=== PATIENT | male | born 1960 | race Caucasian/White ===

== ENCOUNTER 2020-11-21 06:55 | Outpatient (REF) | payer BC, SELFPAY ==
--- NOTE | ~2020-11-21 | XR_ITS ---
EXAMINATION: XR SHOULDER, RIGHT XR SHOULDER, LEFT CLINICAL INFORMATION: Pain. COMPARISON: Left shoulder radiographs dated 07/23/2019. TECHNIQUE: AP, Grashey, scapular Y, and axillary views of the right and left shoulders. FINDINGS: RIGHT SHOULDER: No acute fracture or dislocation. Mild glenohumeral joint space narrowing with inferior marginal osteophytes. Moderate acromioclavicular osteoarthritis. No osseous erosion. No abnormal soft tissue calcification. LEFT SHOULDER: Irydrcmz-rr-kjqxdf glenohumeral joint space narrowing with subchondral sclerosis and marginal osteophytes, progressed when compared to the prior examination. Mild acromioclavicular osteoarthritis. No osseous erosion. No fracture or dislocation. No abnormal soft tissue calcification. XR/XR shoulder RT min 2V IMPRESSION: Right Shoulder: Moderate acromioclavicular and mild glenohumeral osteoarthritis. Left Shoulder: Rwjzaxgf-cq-bjnhdy glenohumeral osteoarthritis, progressed when compared to the prior examination. Stable mild acromioclavicular osteoarthritis.
--- NOTE | ~2020-11-21 | XR_ITS ---
EXAMINATION: XR KNEE, RIGHT XR KNEE, LEFT CLINICAL INFORMATION: Pain. COMPARISON: None TECHNIQUE: AP and lateral views of the right and left knees. FINDINGS: RIGHT KNEE: Moderate medial compartment joint space narrowing. Tiny medial and patellofemoral compartment marginal osteophytes. Mild medial and lateral compartment chondrocalcinosis. Small joint effusion. No fracture or dislocation. No osseous erosion. LEFT KNEE: Moderate medial compartment joint space narrowing. Small tricompartmental marginal osteophytes. Medial and lateral compartment chondrocalcinosis. Small joint effusion. No fracture or dislocation. No osseous erosion. XR/XR knee LT 2V IMPRESSION: Right Knee: Moderate medial and mild patellofemoral compartment osteoarthritis. Medial and lateral compartment chondrocalcinosis. Small joint effusion. Left Knee: Moderate medial as well as mild patellofemoral and lateral compartment osteoarthritis. Medial and lateral compartment chondrocalcinosis. Small joint effusion.
--- NOTE | ~2020-11-21 | XR_ITS ---
EXAMINATION: XR KNEE, RIGHT XR KNEE, LEFT CLINICAL INFORMATION: Pain. COMPARISON: None TECHNIQUE: AP and lateral views of the right and left knees. FINDINGS: RIGHT KNEE: Moderate medial compartment joint space narrowing. Tiny medial and patellofemoral compartment marginal osteophytes. Mild medial and lateral compartment chondrocalcinosis. Small joint effusion. No fracture or dislocation. No osseous erosion. LEFT KNEE: Moderate medial compartment joint space narrowing. Small tricompartmental marginal osteophytes. Medial and lateral compartment chondrocalcinosis. Small joint effusion. No fracture or dislocation. No osseous erosion. XR/XR knee RT 2V IMPRESSION: Right Knee: Moderate medial and mild patellofemoral compartment osteoarthritis. Medial and lateral compartment chondrocalcinosis. Small joint effusion. Left Knee: Moderate medial as well as mild patellofemoral and lateral compartment osteoarthritis. Medial and lateral compartment chondrocalcinosis. Small joint effusion.
--- NOTE | ~2020-11-21 | XR_ITS ---
EXAMINATION: XR SHOULDER, RIGHT XR SHOULDER, LEFT CLINICAL INFORMATION: Pain. COMPARISON: Left shoulder radiographs dated 07/23/2019. TECHNIQUE: AP, Grashey, scapular Y, and axillary views of the right and left shoulders. FINDINGS: RIGHT SHOULDER: No acute fracture or dislocation. Mild glenohumeral joint space narrowing with inferior marginal osteophytes. Moderate acromioclavicular osteoarthritis. No osseous erosion. No abnormal soft tissue calcification. LEFT SHOULDER: Dxezctyh-vd-pbjkfl glenohumeral joint space narrowing with subchondral sclerosis and marginal osteophytes, progressed when compared to the prior examination. Mild acromioclavicular osteoarthritis. No osseous erosion. No fracture or dislocation. No abnormal soft tissue calcification. XR/XR shoulder LT min 2V IMPRESSION: Right Shoulder: Moderate acromioclavicular and mild glenohumeral osteoarthritis. Left Shoulder: Iekhzcyf-re-msijfh glenohumeral osteoarthritis, progressed when compared to the prior examination. Stable mild acromioclavicular osteoarthritis.
[2020-11-21 08:05] LABS: MANUAL DIFF FLAG NO
[2020-11-21 08:10] LABS: Basophils Percent Auto 0.4 % (0-2); Eosinophils Absolute Auto 0.2 X10*3/uL (0.0-0.4); Eosinophils Percent Auto 1.8 % (0-4); Hematocrit 44.7 % (42-52); Hemoglobin 14.8 g/dl (14.0-18.0); Imm Gran Abs Auto 0.05 X10*3/uL (0.00-0.03); Imm Gran Pct Auto 0.6 % (0.0-0.4); Lymphocytes Absolute Auto 1.3 X10*3/uL (1.2-4.9); Lymphocytes Percent Auto 14.6 % (20-40); Mean Corpuscular HGB Conc 33.1 g/dl (31.0-36.0); Mean Corpuscular Hemoglobin 30.2 pg (27.0-33.0); Mean Corpuscular Volume 91.2 fL (80-98); Mean Platelet Volume 9.4 fL (9.4-12.4); Monocytes Absolute Auto 0.6 X10*3/uL (0.1-1.2); Neutrophils Absolute Auto 6.8 X10*3/uL (2.0-8.3); Neutrophils Percent Auto 75.6 % (45-73); Platelet Count 307 X10*3/uL (160-400); Red Cell Distribution Width 13.2 % (11.0-16.0)
[2020-11-21 08:20] LABS: Estimated Average Glucose 111 mg/dL; Hemoglobin A1c % 5.5 %
[2020-11-21 08:28] LABS: Cholesterol 176 mg/dL; HDL Cholesterol 51 mg/dL; LDL Cholesterol Calculated 111 mg/dl; Triglycerides 70 mg/dL
[2020-11-21 08:30] LABS: Alanine Aminotransferase 20 U/L (0-40); Albumin Level 4.2 g/dL (3.5-5.0); Alkaline Phosphatase 107 U/L (39-117); Anion Gap 14 (12-20); Aspartate Amino Transferase 18 U/L (5-37); Bilirubin Total 0.9 mg/dL (0.0-1.0); Blood Urea Nitrogen 18 mg/dL (9-16); Calcium 8.9 mg/dL (8.4-10.2); Carbon Dioxide 26 mmol/L (22-29); Chloride 105 mmol/L (96-108); Estimated Glomerular Filt Rate > 60; Glucose Random 108 mg/dL (60-115); Potassium 5.1 mmol/L (3.3-5.1); Sodium 140 mmol/L (135-145); Total Protein 7.2 g/dL (6.5-8.0)
[2020-11-21 08:55] LABS: Free T4 (Free Thyroxine) 1.21 ng/dL (0.71-1.85); Thyroid Stimulating Hormone 0.49 uIU/mL (0.32-4.0)
[2020-11-21 09:20] LABS: Erythrocyte Sedimentation Rate 12 MM/HR (0-15)
[2020-11-21 09:48] LABS: Folate 9.3 ng/mL (> or = 4.0); Vitamin B12 448 pg/mL (200-900)
[2020-11-21 10:49] LABS: Prostate Specific Antigen Scr 2.25 ng/mL (<0.05-4.0)
== END 2020-11-21 06:56 | disposition home or self-care (01) ==
LOC: HO.LAB 06:55
PROVIDERS: PCP Internal Medicine; Visit Provider Internal Medicine
DX: K21.9 Gastro-esophageal reflux disease without esophagitis (principal); E03.9 Hypothyroidism, unspecified; R73.02 Impaired glucose tolerance (oral); E78.00 Pure hypercholesterolemia, unspecified; M25.511 Pain in right shoulder; M25.512 Pain in left shoulder; M25.561 Pain in right knee; M25.562 Pain in left knee; Z12.5 Encounter for screening for malignant neoplasm of prostate
CPT/HCPCS: 36415; 73030; 73560; 80053; 80061; 82607; 82746; 83036; 84153; 84439; 84443; 85025; 85652

== ENCOUNTER 2020-12-13 09:54 | Outpatient (REF) | payer BC, SELFPAY ==
[2020-12-14 17:41] LABS: Lyme Synovial Fluid PCR NOT DETECTED (NOT DETECTED)
== END 2020-12-13 09:55 | disposition home or self-care (01) ==
LOC: HO.LNP 09:54
PROVIDERS: Visit Provider Orthopaedic Surgery
DX: M25.461 Effusion, right knee (principal); M25.561 Pain in right knee; M25.562 Pain in left knee
CPT/HCPCS: 20610; 87071; 87073; 87205; 87476; 89060; J1040

== ENCOUNTER 2021-01-05 09:16 | Outpatient (REF) | payer BC, SELFPAY ==
[2021-01-05 10:53] LABS: C Reactive Protein 5.41 mg/dL (< or = 0.50); Rheumatoid Factor < 15.0 IU/mL (<15.0)
[2021-01-05 11:44] LABS: Erythrocyte Sedimentation Rate 23 MM/HR (0-15)
[2021-01-07 15:27] LABS: Anti Nuclear Antibody Screen NEGATIVE (NEGATIVE)
== END 2021-01-05 09:17 | disposition home or self-care (01) ==
LOC: HO.LAB 09:16
PROVIDERS: PCP Internal Medicine; Visit Provider Internal Medicine
DX: M25.511 Pain in right shoulder (principal); M25.512 Pain in left shoulder
CPT/HCPCS: 36415; 85652; 86038; 86039; 86140; 86431

== ENCOUNTER 2021-01-23 10:11 | Outpatient (REF) | payer BC, SELFPAY ==
--- NOTE | ~2021-01-23 | XR_ITS ---
EXAMINATION: BILATERAL HAND. CLINICAL INFORMATION: Pain COMPARISON: None TECHNIQUE: 3 views each hand. FINDINGS: Right hand: There is a no visible acute fracture, dislocation or subluxation. There is loss of the PIP and DIP joint space suggestive digit. No visible acute fracture, dislocation or lytic process seen. The soft tissues are normal. Left hand: There is no visible acute fracture, dislocation or subluxation seen. There is loss of PIP and DIP joint space second through fifth digits with periarticular spurring PIP joint third digit. XR/XR hand LT min 3V IMPRESSION: Degenerative arthritic changes PIP and DIP joints. No visible acute fracture, dislocation or subluxation seen.
--- NOTE | ~2021-01-23 | XR_ITS ---
EXAMINATION: BILATERAL HAND. CLINICAL INFORMATION: Pain COMPARISON: None TECHNIQUE: 3 views each hand. FINDINGS: Right hand: There is a no visible acute fracture, dislocation or subluxation. There is loss of the PIP and DIP joint space suggestive digit. No visible acute fracture, dislocation or lytic process seen. The soft tissues are normal. Left hand: There is no visible acute fracture, dislocation or subluxation seen. There is loss of PIP and DIP joint space second through fifth digits with periarticular spurring PIP joint third digit. XR/XR hand RT min 3V IMPRESSION: Degenerative arthritic changes PIP and DIP joints. No visible acute fracture, dislocation or subluxation seen.
[2021-01-23 11:24] LABS: MANUAL DIFF FLAG NO
[2021-01-23 11:51] LABS: Basophils Absolute Auto 0.1 X10*3/uL (0.0-0.2); Basophils Percent Auto 0.5 % (0-2); Eosinophils Absolute Auto 0.1 X10*3/uL (0.0-0.4); Eosinophils Percent Auto 1.4 % (0-4); Hematocrit 42.9 % (42-52); Hemoglobin 13.7 g/dl (14.0-18.0); Imm Gran Pct Auto 1.1 % (0.0-0.4); Lymphocytes Absolute Auto 2.1 X10*3/uL (1.2-4.9); Lymphocytes Percent Auto 22.1 % (20-40); Mean Corpuscular HGB Conc 31.9 g/dl (31.0-36.0); Mean Corpuscular Hemoglobin 28.3 pg (27.0-33.0); Mean Corpuscular Volume 88.6 fL (80-98); Monocytes Absolute Auto 0.6 X10*3/uL (0.1-1.2); Monocytes Percent Auto 6.3 % (2-11); Neutrophils Absolute Auto 6.4 X10*3/uL (2.0-8.3); Neutrophils Percent Auto 68.6 % (45-73); Platelet Count 392 X10*3/uL (160-400); Red Blood Count 4.84 X10*6/uL (4.60-5.80); Red Cell Distribution Width 13.1 % (11.0-16.0); White Blood Count 9.4 X10*3/uL (4.8-10.8)
[2021-01-23 12:23] LABS: Alanine Aminotransferase 20 U/L (0-40); Albumin Level 4.1 g/dL (3.5-5.0); Alkaline Phosphatase 98 U/L (39-117); Anion Gap 15 (12-20); Aspartate Amino Transferase 17 U/L (5-37); Bilirubin Total 0.6 mg/dL (0.0-1.0); Blood Urea Nitrogen 18 mg/dL (9-16); C Reactive Protein 8.04 mg/dL (< or = 0.50); Calcium 9.6 mg/dL (8.4-10.2); Carbon Dioxide 26 mmol/L (22-29); Chloride 104 mmol/L (96-108); Estimated Glomerular Filt Rate > 60; Glucose Random 96 mg/dL (60-115); Potassium 4.9 mmol/L (3.3-5.1); Sodium 140 mmol/L (135-145); Total Protein 7.4 g/dL (6.5-8.0)
[2021-01-23 12:29] LABS: Erythrocyte Sedimentation Rate 40 MM/HR (0-15)
[2021-01-24 21:36] LABS: Lyme Abs Screen <0.90 index
[2021-01-26 14:36] LABS: Cyclic Citrullinated Peptide <16 UNITS
== END 2021-01-23 10:12 | disposition home or self-care (01) ==
LOC: HO.LAB 10:11
PROVIDERS: PCP Internal Medicine; Visit Provider Student in an Organized Health Care Education/Training Program
DX: M25.511 Pain in right shoulder (principal); M25.512 Pain in left shoulder; M79.642 Pain in left hand; M79.641 Pain in right hand
CPT/HCPCS: 36415; 73130; 80053; 85025; 85652; 86140; 86200; 86617; 86618

== ENCOUNTER 2021-02-07 14:04 | Outpatient (REF) | payer BC, SELFPAY ==
[2021-02-07 15:00] LABS: MANUAL DIFF FLAG NO
[2021-02-07 15:08] LABS: Basophils Percent Auto 0.3 % (0-2); Eosinophils Percent Auto 0.4 % (0-4); Hematocrit 43.6 % (42-52); Hemoglobin 14.2 g/dl (14.0-18.0); Imm Gran Abs Auto 0.07 X10*3/uL (0.00-0.03); Imm Gran Pct Auto 0.6 % (0.0-0.4); Immature Retic Fraction 8.2 % (2.3-13.4); Lymphocytes Absolute Auto 2.4 X10*3/uL (1.2-4.9); Lymphocytes Percent Auto 21.4 % (20-40); Mean Corpuscular HGB Conc 32.6 g/dl (31.0-36.0); Mean Corpuscular Hemoglobin 28.9 pg (27.0-33.0); Mean Corpuscular Volume 88.6 fL (80-98); Mean Platelet Volume 9.1 fL (9.4-12.4); Monocytes Absolute Auto 0.5 X10*3/uL (0.1-1.2); Monocytes Percent Auto 4.3 % (2-11); Neutrophils Absolute Auto 8.1 X10*3/uL (2.0-8.3); Platelet Count 362 X10*3/uL (160-400); Red Blood Count 4.92 X10*6/uL (4.60-5.80); Red Cell Distribution Width 14.4 % (11.0-16.0); Retic HGB Equivalent 33.5 pg (30.0-35.0); Reticulocyte Percent 1.8 % (0.5-1.8); Reticulocytes Absolute 0.089 X10*6/uL (0.026-0.095); White Blood Count 11.1 X10*3/uL (4.8-10.8)
[2021-02-07 15:42] LABS: C Reactive Protein 2.64 mg/dL (< or = 0.50); Iron 36 mcg/dL (45-160); Percent Iron Saturation 11 % (15-50); Total Iron Binding Capacity 317 mcg/dL (228-428); Unsaturated Iron Binding 281 ug/dL
[2021-02-07 15:51] LABS: Ferritin 285 ng/mL (20-250)
[2021-02-07 16:04] LABS: Erythrocyte Sedimentation Rate 7 MM/HR (0-15)
[2021-02-07 16:06] LABS: Folate 14.6 ng/mL (> or = 4.0); Vitamin B12 502 pg/mL (200-900)
== END 2021-02-07 14:05 | disposition home or self-care (01) ==
LOC: HO.LAB 14:04
PROVIDERS: Absent Provider Internal Medicine; PCP Internal Medicine; Visit Provider Student in an Organized Health Care Education/Training Program
DX: M35.3 Polymyalgia rheumatica (principal); D64.9 Anemia, unspecified
CPT/HCPCS: 36415; 82607; 82728; 82746; 83540; 85025; 85045; 85652; 86140

== ENCOUNTER → 2021-02-15 14:56 | Outpatient (BNVA) | payer BC, SELFPAY | PROVIDERS: PCP Internal Medicine; Visit Provider Student in an Organized Health Care Education/Training Program ==

== ENCOUNTER 2021-03-05 05:57 | Outpatient (REF) | payer BC, SELFPAY ==
[2021-03-05 07:53] LABS: C Reactive Protein 0.77 mg/dL (< or = 0.50)
[2021-03-05 08:33] LABS: Erythrocyte Sedimentation Rate 4 MM/HR (0-15)
== END 2021-03-05 05:58 | disposition home or self-care (01) ==
LOC: HO.LAB 05:57
PROVIDERS: PCP Internal Medicine; Visit Provider Student in an Organized Health Care Education/Training Program
DX: M35.3 Polymyalgia rheumatica (principal)
CPT/HCPCS: 36415; 85652; 86140

== ENCOUNTER → 2021-03-09 12:32 | Outpatient (BNVA) | payer BC, SELFPAY | PROVIDERS: PCP Internal Medicine; Visit Provider Student in an Organized Health Care Education/Training Program ==

== ENCOUNTER 2021-04-02 06:01 | Outpatient (REF) | payer BC, SELFPAY ==
[2021-04-02 07:34] LABS: C Reactive Protein 0.31 mg/dL (< or = 0.50)
[2021-04-02 09:12] LABS: Erythrocyte Sedimentation Rate 5 MM/HR (0-15)
== END 2021-04-02 06:02 | disposition home or self-care (01) ==
LOC: HO.LAB 06:01
PROVIDERS: PCP Internal Medicine; Visit Provider Student in an Organized Health Care Education/Training Program
DX: M35.3 Polymyalgia rheumatica (principal)
CPT/HCPCS: 36415; 85652; 86140

== ENCOUNTER → 2021-04-04 12:20 | Outpatient (BNVA) | payer BC, SELFPAY | PROVIDERS: PCP Internal Medicine; Visit Provider Nurse Practitioner Family ==

== ENCOUNTER 2021-06-18 06:00 | Outpatient (REF) | payer BC, SELFPAY ==
[2021-06-18 07:38] LABS: C Reactive Protein 0.24 mg/dL (< or = 0.50)
[2021-06-18 08:41] LABS: Erythrocyte Sedimentation Rate 5 MM/HR (0-15)
== END 2021-06-18 06:01 | disposition home or self-care (01) ==
LOC: HO.LAB 06:00
PROVIDERS: PCP Internal Medicine; Visit Provider Nurse Practitioner Family
DX: M35.3 Polymyalgia rheumatica (principal)
CPT/HCPCS: 36415; 85652; 86140

== ENCOUNTER → 2021-06-21 08:39 | Outpatient (BNVA) | payer BC, SELFPAY | PROVIDERS: PCP Internal Medicine; Visit Provider Nurse Practitioner Family ==

== ENCOUNTER 2021-09-03 05:59 | Outpatient (REF) | payer BC, SELFPAY ==
[2021-09-03 07:31] LABS: C Reactive Protein 0.56 mg/dL (< or = 0.50)
[2021-09-03 07:53] LABS: Erythrocyte Sedimentation Rate 5 MM/HR (0-15)
== END 2021-09-03 06:00 | disposition home or self-care (01) ==
LOC: HO.LAB 05:59
PROVIDERS: PCP Internal Medicine; Visit Provider Nurse Practitioner Family
DX: M35.3 Polymyalgia rheumatica (principal)
CPT/HCPCS: 36415; 85652; 86140

== ENCOUNTER → 2021-09-06 09:48 | Outpatient (BNVA) | payer BC, SELFPAY | PROVIDERS: PCP Internal Medicine; Visit Provider Nurse Practitioner Family ==

== ENCOUNTER 2021-10-29 15:31 | Outpatient (REF) | payer BC, SELFPAY ==
[2021-10-29 17:06] LABS: C Reactive Protein 0.54 mg/dL (< or = 0.50)
[2021-10-29 17:22] LABS: Erythrocyte Sedimentation Rate 4 MM/HR (0-15)
== END 2021-10-29 15:32 | disposition home or self-care (01) ==
LOC: HO.LAB 15:31
PROVIDERS: PCP Internal Medicine; Visit Provider Nurse Practitioner Family
DX: M35.3 Polymyalgia rheumatica (principal)
CPT/HCPCS: 36415; 85652; 86140

== ENCOUNTER 2021-12-03 05:59 | Outpatient (REF) | payer BC, SELFPAY ==
[2021-12-03 08:07] LABS: C Reactive Protein 0.48 mg/dL (< or = 0.50)
[2021-12-03 08:26] LABS: Erythrocyte Sedimentation Rate 5 MM/HR (0-15)
== END 2021-12-03 06:00 | disposition home or self-care (01) ==
LOC: HO.LAB 05:59
PROVIDERS: PCP Internal Medicine; Visit Provider Nurse Practitioner Family
DX: M35.3 Polymyalgia rheumatica (principal)
CPT/HCPCS: 36415; 85652; 86140

== ENCOUNTER → 2021-12-05 07:54 | Outpatient (BNVA) | payer BC, SELFPAY | PROVIDERS: PCP Internal Medicine; Visit Provider Nurse Practitioner Family | DX: Z13.89 Encounter for screening for other disorder (principal) ==

== ENCOUNTER 2022-02-12 12:50 | Outpatient (REF) | payer BC, SELFPAY ==
--- NOTE | ~2022-02-12 | XR_ITS ---
EXAMINATION: XR ABDOMEN KUB CLINICAL INDICATION: Screening for malignant neoplasm of colon. COMPARISON: None TECHNIQUE: AP view of the abdomen. FINDINGS: There is scattered stool in colon without any distention. No organomegaly. The small bowel loops are normal caliber. Mild degenerative disc changes L3-L4 disc level are noted. There is evidence of previous bilateral vasectomy. XR/XR KUB IMPRESSION: Nonspecific bowel gas pattern with mild constipation. Mild degenerative disc changes L3-L4 disc level.
== END 2022-02-12 12:51 | disposition home or self-care (01) ==
LOC: HO.XRAY 12:50
PROVIDERS: PCP Internal Medicine; Visit Provider Internal Medicine
DX: Z12.11 Encounter for screening for malignant neoplasm of colon (principal); K59.00 Constipation, unspecified; M51.36 Other intervertebral disc degeneration, lumbar region
CPT/HCPCS: 74018

== ENCOUNTER 2022-02-13 05:52 | Outpatient (REF) | payer BC, SELFPAY ==
[2022-02-13 06:03] LABS: MANUAL DIFF FLAG NO
[2022-02-13 06:59] LABS: Appearance Urine CLEAR; Color Urine YELLOW; Glucose Urine UA NEG (NEG); Leukocyte Esterase Urine NEG (NEG); Nitrite Urine NEG (NEG); PH 5.5 (5.0-8.0); Specific Gravity - Urine 1.025 (1.005-1.025); Urine Blood NEG (NEG); Urine Ketones NEG (NEG); Urine Protein NEG (NEG-TRACE)
[2022-02-13 07:25] LABS: Basophils Percent Auto 0.8 % (0-2); Eosinophils Absolute Auto 0.2 X10*3/uL (0.0-0.4); Hematocrit 43.8 % (42.0-52.0); Hemoglobin 14.5 g/dl (14.0-18.0); Imm Gran Abs Auto 0.02 X10*3/uL (0.00-0.03); Imm Gran Pct Auto 0.4 % (0.0-0.4); Lymphocytes Absolute Auto 1.6 X10*3/uL (1.2-4.9); Lymphocytes Percent Auto 33.3 % (20-40); Mean Corpuscular HGB Conc 33.1 g/dl (31.0-36.0); Mean Corpuscular Hemoglobin 30.2 pg (27.0-33.0); Mean Corpuscular Volume 91.3 fL (80.0-98.0); Mean Platelet Volume 9.6 fL (9.4-12.4); Monocytes Absolute Auto 0.4 X10*3/uL (0.1-1.2); Neutrophils Absolute Auto 2.5 x10*3/uL (2.0-8.3); Neutrophils Percent Auto 52.5 % (45-73); Platelet Count 240 X10*3/uL (160-400); Red Cell Distribution Width 13.4 % (11.0-16.0); White Blood Count 4.8 X10*3/uL (4.8-10.8)
[2022-02-13 07:30] LABS: RBC Urine 0-2 /HPF (0); WBC Urine 0 /HPF (0-4)
[2022-02-13 07:41] LABS: Estimated Average Glucose 108 mg/dL; Hemoglobin A1c % 5.4 %
[2022-02-13 07:42] LABS: Alanine Aminotransferase 21 U/L (0-40); Albumin Level 4.2 g/dL (3.5-5.0); Alkaline Phosphatase 90 U/L (39-117); Anion Gap 11 (12-20); Aspartate Amino Transferase 21 U/L (5-37); Bilirubin Total 0.7 mg/dL (0.0-1.0); Blood Urea Nitrogen 19 mg/dL (9-16); C Reactive Protein 0.47 mg/dL (< or = 0.50); Carbon Dioxide 26 mmol/L (22-29); Chloride 110 mmol/L (96-108); Cholesterol 145 mg/dL; Estimated Glomerular Filt Rate > 60; Glucose Random 99 mg/dL (60-115); HDL Cholesterol 44 mg/dL; LDL Cholesterol Calculated 89 mg/dl; Sodium 142 mmol/L (135-145); Triglycerides 63 mg/dL
[2022-02-13 08:12] LABS: Free T4 (Free Thyroxine) 1.42 ng/dL (0.71-1.85); Prostate Specific Antigen Scr 1.94 ng/mL (<0.05-4.0); Thyroid Stimulating Hormone 0.24 uIU/mL (0.32-4.0)
[2022-02-13 08:17] LABS: Erythrocyte Sedimentation Rate 5 MM/HR (0-15)
[2022-02-13 08:28] LABS: Folate 14.6 ng/mL (> or = 4.0); Vitamin B12 406 pg/mL (200-900)
== END 2022-02-13 05:53 | disposition home or self-care (01) ==
LOC: HO.LAB 05:52
PROVIDERS: Nurse Practitioner Family; PCP Internal Medicine; Visit Provider Internal Medicine
DX: Z12.5 Encounter for screening for malignant neoplasm of prostate (principal); E03.9 Hypothyroidism, unspecified; E78.00 Pure hypercholesterolemia, unspecified; M35.3 Polymyalgia rheumatica
CPT/HCPCS: 36415; 80053; 80061; 81001; 82607; 82746; 83036; 84153; 84439; 84443; 85025; 85652; 86140

== ENCOUNTER 2022-03-28 16:08 | Outpatient (REF) | payer BC, SELFPAY ==
[2022-03-28 17:28] LABS: Free T4 (Free Thyroxine) 1.39 ng/dL (0.71-1.85); Thyroid Stimulating Hormone 0.12 uIU/mL (0.32-4.0)
== END 2022-03-28 16:09 | disposition home or self-care (01) ==
LOC: HO.LAB 16:08
PROVIDERS: PCP Internal Medicine; Visit Provider Internal Medicine
DX: E03.9 Hypothyroidism, unspecified (principal)
CPT/HCPCS: 36415; 84439; 84443

== ENCOUNTER 2022-05-13 16:15 | Outpatient (REF) | payer BC, SELFPAY ==
[2022-05-13 17:45] LABS: Free T4 (Free Thyroxine) 1.23 ng/dL (0.71-1.85)
== END 2022-05-13 16:16 | disposition home or self-care (01) ==
LOC: HO.LAB 16:15
PROVIDERS: PCP Internal Medicine; Visit Provider Internal Medicine
DX: E03.9 Hypothyroidism, unspecified (principal)
CPT/HCPCS: 36415; 84439; 84443

== ENCOUNTER 2022-08-15 07:37 | Day surgery (SDC) | payer BC, SELFPAY ==
[2022-08-13 10:24] VITALS: BMI 29.5
--- NOTE | 2022-08-14 13:44 | P.CONAN_ITS ---
Documented by User: Sherley Angela NP 08/14/22 13:47 HPI - Anesthesia Eval Consult details Narrative: 62yo M for Upper Endoscopy and Colonoscopy [facility] Active Problems Active Problems: All Active Problems (Updated 04/11/22 @ 10:34 by Mallory Lang PA-C) Left flank discomfort (Acute) Colon cancer screening (Acute) Anemia (Acute) Polymyalgia rheumatica (Acute) Osteoarthritis (Acute) Annual physical exam (Acute) Bilateral hand pain (Acute) Knee effusion, right (Acute) Shoulder pain, bilateral (Acute) Knee pain, bilateral (Acute) Impaired glucose tolerance (Acute) Hypercholesterolemia (Acute) GERD (gastroesophageal reflux disease) (Acute) Hypothyroid (Acute) Past Medical History Medical History Azygos lobe of lung Carpal tunnel syndrome, right Degenerative disc disease, cervical Finger fracture, right GERD (gastroesophageal reflux disease) Hypercholesterolemia Polymyalgia rheumatica Vitamin D deficiency Family History Family History Father Alcohol abuse Brother Alcohol abuse Sister Thyroid cancer History of Avila's esophagus Surgical History Surgical History H/O colonoscopy H/O endoscopy History of vasectomy Social History Social History Housing: House Alcohol intake: former Patient Tobacco Use Status: Former Tobacco user Quit Date: 1996 Tobacco use type: Cigarette Cigarette Packs Per Day: 1.5 Cigarettes Per Day: 30.0 Years Smoked: 15 Smoked in Last 30 Days: No e-Cigarette/Vaping Use: Never Used Use of substances other than those prescribed or required for medical reasons: No Are you DNR?: No Advance Directives: No Advance Directives Information Provided: Yes service: No Current occupational status: employed Cognitive needs: No Hearing needs: No Vision needs: Yes Meds Allergies Allergy/AdvReac Type Severity Reaction Status Date / Time simvastatin Allergy Intermediate Drowsy Verified 08/15/22 08:04 atorvastatin calcium Allergy Intermediate Drowsy Uncoded 08/15/22 08:04 pravastatin sodium Allergy Intermediate Drowsy Uncoded 08/15/22 08:04 Home Medications Medication Instructions Recorded Confirmed Last Taken Type ibuprofen 600 mg tablet 600 mg PO Q8H PRN Pain 02/05/22 08/15/22 08/14/22 History 200 mg Exam Exam Date and Time: August 14, 2022 1344 Height,Weight and Vital Signs: Height 5 ft 9 in Weight 90.718 kg Pertinent Lab Results Pertinent Lab Results: Laboratory Tests 02/13/22 02/13/22 06:02 06:02 WBC 4.8 Hgb 14.5 Hct 43.8 Plt Count 240 Sodium 142 Potassium 5.0 Chloride 110 H Carbon Dioxide 26 BUN 19 H Creatinine 1.10 Assessment and Plan Assessment Anesthesia Assessment: Chart Reviewed Documented by User: dAe Kim MD 08/15/22 10:04 [facility] Past Medical History Medical History Azygos lobe of lung Carpal tunnel syndrome, right Degenerative disc disease, cervical Finger fracture, right GERD (gastroesophageal reflux disease) Hypercholesterolemia Polymyalgia rheumatica Vitamin D deficiency Family History Family History Father Alcohol abuse Brother Alcohol abuse Sister Thyroid cancer History of Avila's esophagus Family history of problems with anesthesia: No Surgical History Surgical History H/O colonoscopy H/O endoscopy History of vasectomy History of Problems with Anesthesia: No Social History Social History Housing: House Alcohol intake: former Patient Tobacco Use Status: Former Tobacco user Quit Date: 1996 Tobacco use type: Cigarette Cigarette Packs Per Day: 1.5 Cigarettes Per Day: 30.0 Years Smoked: 15 Smoked in Last 30 Days: No e-Cigarette/Vaping Use: Never Used Use of substances other than those prescribed or required for medical reasons: No Are you DNR?: No Advance Directives: No Advance Directives Information Provided: Yes service: No Current occupational status: employed Cognitive needs: No Hearing needs: No Vision needs: Yes Meds Allergies Allergy/AdvReac Type Severity Reaction Status Date / Time simvastatin Allergy Intermediate Drowsy Verified 08/15/22 08:04 atorvastatin calcium Allergy Intermediate Drowsy Uncoded 08/15/22 08:04 pravastatin sodium Allergy Intermediate Drowsy Uncoded 08/15/22 08:04 Home Medications Medication Instructions Recorded Confirmed Last Taken Type ibuprofen 600 mg tablet 600 mg PO Q8H PRN Pain 02/05/22 08/15/22 08/14/22 History 200 mg Exam Height,Weight and Vital Signs: Height 5 ft 9 in Weight 90.718 kg Vital Signs Temp Pulse Resp BP Pulse Ox O2 Del Method 08/15/22 08:05 97.6 F 65 16 139/78 97 Room Air Airway Mallampati Class: I TM Dist: >3cm Neck ROM: Full Loose/Missing/Broken Teeth: Yes Heart: RRR Lungs: CTAB Assessment and Plan Assessment Anesthesia Assessment: Anesthesia Plan Discussed Final Anesthetic Review Family History of Problems with Anesthesia: No History of Problems with Anesthesia: No NPO: Yes ASA Class: II Final Preanesthetic Review: No Changes in Pt Med Stat, Meds/Allgs Chart Reviewed, Consent Obtained/Reviewed and Anes Risks/Benef Reviewed Patient Risk: Low Procedure Risk: Low Assessment/Block/Sedation in SS: Assess/Block/Sedation-SS Anesthetic Plan Anesthetic Plan: MAC: Disposition: Standard PACU
[2022-08-15 08:05] VITALS: BP 139/78; PULSE 65; RESP 16; TEMP 36.4; O2SAT 97; BMI 29.5
[2022-08-15] MEDS: Lactated Ringers 1,000 ML 100 ML IVCONT (08:19)
--- NOTE | 2022-08-15 08:34 | MHC.SHP ---
Pre-Procedural Eval Section A Date of Service: 08/15/22 Section B Chief Complaint: reflux disease,screening Relevant Family History (Specify if Yes): No Relevant Social History: None Present Medications: see Short Stay Collaborative assessment Medical History: Significant History (Azygos lobe of lung Carpal tunnel syndrome, right Degenerative disc disease, cervical Finger fracture, right GERD (gastroesophageal reflux disease) Hypercholesterolemia Polymyalgia rheumatica Vitamin D deficiency) History of Previous Operations: Relevant previous surgery/procedure and date(s) (vasectomy) Allergies: Allergies Allergy/AdvReac Type Severity Reaction Status Date / Time simvastatin Allergy Intermediate Drowsy Verified 08/15/22 08:04 atorvastatin calcium Allergy Intermediate Drowsy Uncoded 08/15/22 08:04 pravastatin sodium Allergy Intermediate Drowsy Uncoded 08/15/22 08:04 Review of Systems Sugical H&P ROS: Negative: Constitution, Cardiovascular, Respiratory, Neurological, Psychiatric, Hem-Onc, Allergic/Immunologic, Gastrointestinal, Genitourinary, Musculoskeletal, Integumentary, Endocrine and Eyes/Ears/Nose/Throat Exam Surgical H&P Exam: Normal: HEENT, Normal: Heart, Normal: Lungs, Normal: Extremities, Normal: Abdomen, Normal: Skin and Normal: Neurological Plan Diagnosis/Plan: Unchanged I have reviewed the history and physical and performed a pertinent physical examination on my patient. No changes have occurred unless specified. Time Spent With Patient Time: Total time managing care of this patient today ____ minutes.
--- NOTE | 2022-08-15 09:17 | W.PM.OPN ---
Operative Note Operative Note Date of Service: 08/15/22 Narrative: Operative Information Procedure Description: EGD, Colonoscopy Indication: reflux, screening Anesthesia: MAC FLEXIBLE TRANSORAL UPPER GASTROINTESTINAL ENDOSCOPY AND COLONOSCOPY PROCEDURE NOTE UPPER ENDOSCOPY Consent: Indications for the procedure and potential complications of bleeding, perforation, reaction to medications and missed diagnosis were discussed with the patient and informed consent was obtained. Instrument: Olympus GIF H 190 J mid size upper endoscope Monitoring: Vital signs and clinical assessment, continuous EKG monitoring, Pulse oximetry, Carbon Dioxide monitoring and blood pressure monitoring were done throughout the procedure. Procedure: The patient was placed in the left lateral decubitis position and pre-procedure medications were administered and a bite block was placed. The endoscope was inserted into the mouth and advanced under direct vision to the third part of duodenum. A careful inspection was made as the upper endoscope was withdrawn including a retroflexed examination of the proximal stomach; Findings and interventions are described below. Findings: Larynx:normal Esophagus: GE junction at 36 cm, diaphragm hiatus at 39 cm, 3 cm sliding hiatal hernia noted. Erythema around GEJ bx taken from here and distal esophagus Stomach: Patchy erythema and few erosions antrum. Biopsies were obtained. Grade 2 flap valve on retroflexed examination of the cardia. Duodenum: Bulbar duodenitis, polypoid leison/nodule removed with cold snare in bulb measured about 10 mm, possible prominent raf gland due to duodenitis, x 3 clips applied for hemostasis Intervention: Biopsies as noted above, polypectomy COLONOSCOPY Instrument: Olympus variable stiffness pediatric scope 190L Colonoscopy Monitoring: Vital signs and clinical assessment, continuous EKG monitoring, Pulse oximetry, Carbon Dioxide monitoring and blood pressure monitoring were done throughout the procedure. Colon withdrawal time was 10 minutes. Procedure: The patient was placed in the left lateral decubitis position and pre-procedure medications were administered. After a digital rectal examination of the ano-rectum, the video colonoscope was inserted into the rectum and advanced through the colon to the cecum/TI. The colonoscope was slowly withdrawn in a retrograde panoramic fashion and the colon mucosa was carefully examined including a retroflexed view of the rectum. Findings and interventions are described below. Procedure Difficulty: easy Findings: Terminal Ileum-normal Cecum:normal Ascending Colon: normal Transverse Colon - 6-8 mm sessile polyp removed with cold snare Descending Colon:normal Sigmoid Colon: moderate severe diverticulosis Rectum: Retroflexion with moderate internal hemorrhoids, grade I, 7-8 mm sessile polyp removed with cold forceps Anorectum - normal Colon preparation: [place] Bowel Preparation Scale Right colon; 3 Transverse colon: 2 Left colon; 3 (0 = Unprepared colon segment with mucosa not seen due to solid stool that cannot be cleared. 1 = Portion of mucosa of the colon segment seen, but other areas of the colon segment not well seen due to staining, residual stool and/or opaque liquid. 2 = Minor amount of residual staining, small fragments of stool and/or opaque liquid, but mucosa of colon segment seen well. 3 = Entire mucosa of colon segment seen well with no residual staining, small fragments of stool or opaque liquid) Impression and Post Procedure Diagnosis: Endoscopy Findings: duodenitis duodenal polyp gastritis esophagitis hiatal hernia Colonoscopy Findings: polyps internal hemorrhoids diverticular disease Plan: Await Pathology results Repeat Colonoscopy in 5 years due to polyps or earlier if clinically indicated High fiber diet leaflet avoid straining at stool, epsom salts and sitz bath, anusol supps or cream check compliance with PPI Above findings were reviewed with the patient and relevant handouts were provided if indicated.
[2022-08-15 10:13] VITALS: BP 98/63; PULSE 63; RESP 16; TEMP 36.4; O2SAT 98
[2022-08-15 10:27] VITALS: BP 103/76; PULSE 65; RESP 16; O2SAT 95
[2022-08-15 10:40] VITALS: BP 103/76; PULSE 62; RESP 18; TEMP 36.4; O2SAT 95
== END 2022-08-15 10:56 ==
LOC: HO.SSS 07:37
PROVIDERS: PCP Internal Medicine; Visit Provider Internal Medicine Gastroenterology
PROC: (CPT 45385; principal; 2022-08-15 09:20)
DX: Z12.11 Encounter for screening for malignant neoplasm of colon (principal); D12.3 Benign neoplasm of transverse colon; K62.1 Rectal polyp; K57.30 Diverticulosis of large intestine without perforation or abscess without bleeding; K64.0 First degree hemorrhoids; R13.10 Dysphagia, unspecified; K21.9 Gastro-esophageal reflux disease without esophagitis; K29.80 Duodenitis without bleeding; K29.50 Unspecified chronic gastritis without bleeding; K20.80 Other esophagitis without bleeding; K31.7 Polyp of stomach and duodenum; K44.9 Diaphragmatic hernia without obstruction or gangrene; E78.00 Pure hypercholesterolemia, unspecified; E55.9 Vitamin D deficiency, unspecified; M35.3 Polymyalgia rheumatica; Q33.1 Accessory lobe of lung; Z79.1 Long term (current) use of non-steroidal anti-inflammatories (NSAID); Z79.899 Other long term (current) drug therapy; Z88.8 Allergy status to other drugs, medicaments and biological substances; Z87.891 Personal history of nicotine dependence
CPT/HCPCS: 45385; 45380; 43251; 43239; 88305; 88342

== ENCOUNTER → 2022-09-11 07:53 | Outpatient (BNVA) | payer BC, SELFPAY | PROVIDERS: PCP Internal Medicine; Referring Provider Internal Medicine; Visit Provider Internal Medicine Gastroenterology | DX: Z13.89 Encounter for screening for other disorder (principal) ==

== ENCOUNTER 2022-09-11 16:06 | Outpatient (REF) | payer BC, SELFPAY ==
[2022-09-13 14:30] LABS: H Pylori Breath Test Negative (Negative)
== END 2022-09-11 16:07 | disposition home or self-care (01) ==
LOC: HO.LNP 16:06
PROVIDERS: Visit Provider Internal Medicine Gastroenterology
DX: Z11.0 Encounter for screening for intestinal infectious diseases (principal)
CPT/HCPCS: 83013

== ENCOUNTER 2023-02-17 05:57 | Outpatient (REF) | payer BC, SELFPAY | END 2023-02-17 05:58 | disposition home or self-care (01) | LOC: HO.LAB 05:57 | PROVIDERS: PCP Internal Medicine; Visit Provider Internal Medicine | DX: Z12.5 Encounter for screening for malignant neoplasm of prostate (principal); E03.9 Hypothyroidism, unspecified; K21.9 Gastro-esophageal reflux disease without esophagitis; R73.02 Impaired glucose tolerance (oral); E78.00 Pure hypercholesterolemia, unspecified | CPT/HCPCS: 36415; 80053; 80061; 82607; 82746; 83036; 84153; 84439; 84443; 85025 ==

== ENCOUNTER 2023-11-19 14:09 | Outpatient (AMB) | payer OTHER, SELFPAY ==
[2023-11-19 14:17] VITALS: BP 124/78; PULSE 54; O2SAT 95; BMI 28.8
--- NOTE | 2023-11-19 14:17 | A.OFFPC_ITS ---
Vital Signs 11/19/23 14:17 Height 5 ft 9 in Weight 195 lb BMI 28.8 BP 124/78 Blood Pressure Location Lt brachial Position Sitting Pulse 54 Pulse Source Pulse Oximeter Pulse Oximetry (%) 95 Oxygen Delivery Method Room Air Intake Visit Reasons: Pre-Op, cataract left eye, Madison Stephens Allergies simvastatin Allergy (Intermediate, Verified 11/19/23 14:17) Drowsy atorvastatin calcium Allergy (Intermediate, Uncoded 11/19/23 14:17) Drowsy pravastatin sodium Allergy (Intermediate, Uncoded 11/19/23 14:17) Drowsy Medication List - Last Reconciled 11/19/23 by Charlotte Mayes MD apple cider vinegar 600 mg PO .QD ibuprofen 600 mg PO Q8H PRN levothyroxine (Synthroid) 150 mcg orally take once a day except for friday; 90 days pantoprazole 20 mg PO QAM rosuvastatin 5 mg PO DAILY Tobacco use date assessed: 11/19/23 Dental Screening Dental Screen Date: 11/19/23 Did you have a dental visit in the last 12 months?: Yes Did you have a dental problem in the last 6 months where you did not have access to dental care?: No Was dental information given to patient?: Patient has dentist HPI Pre-Op, cataract left eye, Madison Stephens HPI Details 63-year-old overweight male with a histo ry of hypercholesterolemia impaired glucose tolerance hypothyroidism and GERD last seen for physical in February 2023. Patient is here for preoperative evaluation for cataract surgery scheduled for 11/25/2023 Left eye [facility] Medical History (Updated 11/19/23 @ 14:31 by Charlotte Mayes MD) Left flank discomfort Colon cancer screening Anemia Finger fracture, right Polymyalgia rheumatica Bilateral hand pain Knee effusion, right Shoulder pain, bilateral Knee pain, bilateral Azygos lobe of lung Degenerative disc disease, cervical Carpal tunnel syndrome, right Hypercholesterolemia Vitamin D deficiency GERD (gastroesophageal reflux disease) Surgical History History of esophagogastroduodenoscopy (EGD) H/O endoscopy H/O colonoscopy History of vasectomy Family History (Updated 11/19/23 @ 14:19 by Ana Rosa Bautista CMA) Father Alcohol abuse Brother Alcohol abuse Sister Thyroid cancer History of Avila's esophagus Social History (Updated 02/12/23 @ 16:01 by Charlotte Mayes MD) Housing: House Alcohol intake: former Patient Tobacco Use Status: Former Tobacco user Quit Date: 1996 Tobacco use type: Cigarette Cigarette Packs Per Day: 1.5 Cigarettes Per Day: 30.0 Years Smoked: 15 QUIT 1996 e-Cigarette/Vaping Use: Never Used service: No Current occupational status: employed Cognitive needs: No Hearing needs: No Vision needs: Yes Questionnaire PHQ-9 Over the last 2 weeks, how often have you been bothered by any of the following problems? 1. Little interest or pleasure in doing things: not at all 2. Feeling down, depressed, or hopeless: not at all 3. Trouble falling or staying asleep, or sleeping too much: not at all 4. Feeling tired or having little energy: not at all 5. Poor appetite or overeating: not at all 6. Feeling bad about yourself - or that you are a failure or have let yourself or your family down: not at all 7. Trouble concentrating on things, such as reading the newspaper or watching television: not at all 8. Moving or speaking so slowly that other people could have noticed. Or the opposite - being so fidgety or restless that you have been moving around a lot more than usual: not at all 9. Thoughts that you would be better off or of hurting yourself in some way: not at all Total score: 0 Depression Screening Interpretation: Negative Depression Screening Done: Yes 16914 - PHQ-9 Billing: Yes Source: Developed by Drs. Steve Webber, Zoe Russ, Bijan Mejia and colleagues, with an educational rodolfo from [employer]. Thrive Questionnaire Date Thrive assessed: 11/19/23 I am a: Patient What is your living situation today?: I have a steady place to live Within the past 12 months, did the food you bought not last and you didn't have the money to get more?: Never true Within the past 12 months, did you worry whether your food would run out before you got money to buy more?: Never true Do you have trouble paying for medicines?: No Do you have trouble getting transportation to medical appointments?: No Do you have trouble paying your heating and electricity bill?: No Do you have trouble taking care of your child, family member or friend?: No Do you have trouble with day-to-day activities such as bathing, preparing meals, shopping, managing finances, etc.?: No Are you currently unemployed and looking for a job?: No Are you interested in more education?: No Currently or been in a relationship where the following occur: no concerns reported THRIVE Score: 0 AUDIT C Alcohol Use Questionnaire (AUDIT-C) 1. How often do you have a drink containing alcohol?: Never 3. How often do you have six or more drinks on one occasion?: Never Total Score: 0 MAGUI-7 AMB Questionnaire MAGUI-7 Date MAGUI - 7 assessed: 11/19/23 Feeling nervous, anxious, or on edge: 0 = Not at all Not being able to stop or control worryin = Not at all Worrying too much about different things: 0 = Not at all Trouble relaxin = Not at all Being so restless that it is hard to sit still: 0 = Not at all Becoming easily annoyed or irritable: 0 = Not at all Feeling afraid as if something awful might happen: 0 = Not at all Total MAGUI-7 score (0-4 normal; 5-9 mild; 10-14 moderate; 15-21 severe): 0 Source: Developed by Drs. Steve Webber, Zoe Russ, Bijan Mejia and colleagues, with an educational rodolfo from [employer]. Review of Systems Const Denies poor appetite and Denies weakness Eyes Denies no additional complaints ENT Reports Normal hearing present, Denies dizziness, Denies nasal congestion, Denies tinnitus and Denies sore throat Card Denies chest pain, Denies syncope, Denies rapid heart rate and Denies dyspnea Resp Denies cough and Denies dyspnea GI Denies change in stool character, Reports constipation, Denies diarrhea, Denies nausea and Denies vomiting Denies dysuria and Denies urinary frequency Neuro Reports Normal hearing present, Denies confusion, Denies dizziness, Denies syncope and Denies weakness Psych Denies confusion Physical exam (Primary Care) Vital Signs: Last Vital Signs Pulse 54 11/19/23 14:17 BP 124/78 11/19/23 14:17 Pulse Ox 95 11/19/23 14:17 Oxygen Delivery Method Room Air 11/19/23 14:17 BMI result Body Mass Index 28.8 Tobacco/Smoking Status: Tobacco use Status Tobacco use date assessed 11/19/23 11/19/23 14:23 Patient Tobacco Use Status Former Tobacco user 11/19/23 14:23 Tobacco use type Cigarette 11/19/23 14:23 e-Cigarette/Vaping Use Never Used 11/19/23 14:23 PHQ-9: PHQ-9 Score PHQ-9: Total score 0 11/19/23 14:24 Depression Screening Interpretation: Negative Thrive Assessment: Date of Thrive Assessment Date Thrive assessed 11/19/23 11/19/23 14:23 Currently or been in a relationship where the following occur: no concerns reported Const General: No confusion Orientation/consciousness: No confusion Eyes Conjunctivae: conjunctivae normal Resp Auscultation: clear to auscultation bilaterally Cardio Rate: regular rate Rhythm: regular rhythm GI Inspection: Yes normal to inspection Neuro General: No confusion Cranial nerves: Yes Normal hearing present Extrem General: Yes normal to inspection and No edema Assessment and Plan Assessment & Plan (1) Preop exam for internal medicine: Code(s): Z01.818 - Encounter for other preprocedural examination Plan: Patient is Seen and evaluated. Patient at low risk for any cardiac complication . With the low risk procedure no further workup needed at this time and may proceed with the contemplated procedure. Thank you very much for letting me participate in the care of this patient. (2) GERD (gastroesophageal reflux disease): Comment: Adamant about no ppi Reinforced risks he undertakes Reviewed with him previous EGD report-from 30/07 erosive esophagitis Code(s): K21.9 - Gastro-esophageal reflux disease without esophagitis Qualifiers: Esophagitis presence: without esophagitis Qualified Code(s): K21.9 - Gastro-esophageal reflux disease without esophagitis Plan: Avoid the foods that causes that usually spicy foods, tomato products, juices, coffee, soda and foods that your sensitive to. After eating do not lie down, allow 3-4 hours before in lie down. And keep the head of bed above 30 degrees to avoid the acid from going up. Continue with the pantoprazole (3) Hypercholesterolemia: Code(s): E78.00 - Pure hypercholesterolemia, unspecified Plan: Avoid fried foods, chicken skin, eggs, butter margarine, pastries and meat. Be it pork or beef they have a lot of cholesterol (4) Cataract: Code(s): H26.9 - Unspecified cataract Plan: May proceed with the contemplated procedure. (5) Hypothyroid: Comment: Iodine ablation January 2011 Code(s): E03.9 - Hypothyroidism, unspecified Qualifiers: Hypothyroidism type: acquired Qualified Code(s): E03.9 - Hypothyroidism, unspecified Plan: Continue with thyroid medication Coding Level of Care Code Est Pt Level 4 (58047) Diagnoses Preop exam for internal medicine Z01.818 Gastroesophageal reflux disease without esophagitis K21.9 Esophagitis presence: without esophagitis Hypercholesterolemia E78.00 Cataract H26.9 Acquired hypothyroidism E03.9 Hypothyroidism type: acquired
== END 2023-11-19 14:51 | disposition home or self-care (01) ==
PROVIDERS: PCP Internal Medicine; Visit Provider Internal Medicine
DX: Z01.818 Encounter for other preprocedural examination (principal); K21.9 Gastro-esophageal reflux disease without esophagitis; E78.00 Pure hypercholesterolemia, unspecified; H26.9 Unspecified cataract; E03.9 Hypothyroidism, unspecified
CPT/HCPCS: 99214

== ENCOUNTER 2024-04-14 13:30 | Outpatient (AMB) | payer OTHER, SELFPAY ==
[2024-04-14 13:39] VITALS: BP 124/70; PULSE 87; O2SAT 92; BMI 27.6
--- NOTE | 2024-04-14 13:39 | MHC.PC.OV ---
Vital Signs 04/14/24 13:39 Height 5 ft 9 in Weight 187 lb BMI 27.6 BP 124/70 Blood Pressure Location Lt brachial Position Sitting Pulse 87 Pulse Source Pulse Oximeter Pulse Oximetry (%) 92 Oxygen Delivery Method Room Air Intake Visit Reasons: Clearance for Dr Setphens Surgery 04/27/24/PE [employer] Legal Advisor Required: No Accompanied by: Self / Same As Patient Allergies simvastatin Allergy (Intermediate, Verified 04/14/24 13:40) Drowsy atorvastatin calcium Allergy (Intermediate, Uncoded 04/14/24 13:40) Drowsy pravastatin sodium Allergy (Intermediate, Uncoded 04/14/24 13:40) Drowsy Medication List - Last Reconciled 04/14/24 by Charlotte Mayes MD apple cider vinegar 600 mg PO .QD ibuprofen 600 mg PO Q8H PRN levothyroxine (Synthroid) 150 mcg orally take once a day except for friday; 90 days pantoprazole 20 mg PO QAM rosuvastatin 5 mg PO DAILY Tobacco use date assessed: 11/19/23 Dental Screening Dental Screen Date: 11/19/[address] Stephens Surgery 04/27/24/PE HPI Details 63-year-old overweight male(noted) 8 lb weight loss with GERD hypercholesterolemia hypothyroidism last seen in 11/29/2023 per preoperative evaluation for cataract surgery. R eye May 11, 2024 retired now and eating better. occ dizziness PFSH Medical History (Updated 04/14/24 @ 14:20 by Charlotte Mayes MD) Left flank discomfort Colon cancer screening Anemia Finger fracture, right Polymyalgia rheumatica Bilateral hand pain Knee effusion, right Shoulder pain, bilateral Knee pain, bilateral Azygos lobe of lung Degenerative disc disease, cervical Carpal tunnel syndrome, right Hypercholesterolemia Vitamin D deficiency GERD (gastroesophageal reflux disease) Surgical History History of esophagogastroduodenoscopy (EGD) H/O endoscopy H/O colonoscopy History of vasectomy Family History (Updated 04/14/24 @ 14:22 by Charlotte Mayes MD) Father Alcohol abuse Myocardial infarct Brother Alcohol abuse Sister Thyroid cancer History of Avila's esophagus Social History (Updated 02/12/23 @ 16:01 by Charlotte Mayes MD) Housing: House Alcohol intake: former Patient Tobacco Use Status: Former Tobacco user Tobacco use type: Cigarette Cigarette Packs Per Day: 1.5 Cigarettes Per Day: 30.0 Years Smoked: 15 QUIT 1996 e-Cigarette/Vaping Use: Never Used service: No Current occupational status: employed Cognitive needs: No Hearing needs: No Vision needs: Yes Questionnaire PHQ-9 Over the last 2 weeks, how often have you been bothered by any of the following problems? 1. Little interest or pleasure in doing things: not at all 2. Feeling down, depressed, or hopeless: not at all 3. Trouble falling or staying asleep, or sleeping too much: not at all 4. Feeling tired or having little energy: not at all 5. Poor appetite or overeating: not at all 6. Feeling bad about yourself - or that you are a failure or have let yourself or your family down: not at all 7. Trouble concentrating on things, such as reading the newspaper or watching television: not at all 8. Moving or speaking so slowly that other people could have noticed. Or the opposite - being so fidgety or restless that you have been moving around a lot more than usual: not at all 9. Thoughts that you would be better off or of hurting yourself in some way: not at all Total score: 0 Depression Screening Interpretation: Negative Depression Screening Done: Yes 20965 - PHQ-9 Billing: Yes Source: Developed by Drs. Steve Webber, Bijan Bill and colleagues, with an educational rodolfo from [employer]. Thrive Questionnaire Date Thrive assessed: 11/19/23 AUDIT C Alcohol Use Questionnaire (AUDIT-C) 1. How often do you have a drink containing alcohol?: Never 3. How often do you have six or more drinks on one occasion?: Never Total Score: 0 MAGUI-7 AMB Questionnaire MAGUI-7 Date MAGUI - 7 assessed: 11/19/23 Source: Developed by Drs. Steve Webber, Bijan Bill and colleagues, with an educational rodolfo from [employer]. Review of Systems Const Denies poor appetite and Denies weakness Eyes Denies no additional complaints ENT Reports Normal hearing present, Denies dizziness, Denies nasal congestion, Denies tinnitus and Denies sore throat Card Denies chest pain, Denies syncope, Denies rapid heart rate and Denies dyspnea Resp Denies cough and Denies dyspnea GI Denies change in stool character, Reports constipation, Denies diarrhea, Denies nausea and Denies vomiting Denies dysuria and Denies urinary frequency Neuro Reports Normal hearing present, Denies confusion, Denies dizziness, Denies syncope and Denies weakness Psych Denies confusion Physical exam (Primary Care) Vital Signs: Last Vital Signs Pulse 87 04/14/24 13:39 BP 124/70 04/14/24 13:39 Pulse Ox 92 04/14/24 13:39 Oxygen Delivery Method Room Air 04/14/24 13:39 BMI result Body Mass Index 27.6 Tobacco/Smoking Status: Tobacco use Status Tobacco use date assessed 11/19/23 04/14/24 13:40 Patient Tobacco Use Status Former Tobacco user 04/14/24 13:40 Tobacco use type Cigarette 04/14/24 13:40 e-Cigarette/Vaping Use Never Used 04/14/24 13:40 PHQ-9: PHQ-9 Score PHQ-9: Total score 0 04/14/24 13:40 Depression Screening Interpretation: Negative Thrive Assessment: Date of Thrive Assessment Date Thrive assessed 11/19/23 04/14/24 13:40 Const General: No confusion Orientation/consciousness: No confusion Eyes Conjunctivae: conjunctivae normal Resp Auscultation: clear to auscultation bilaterally Cardio Rate: regular rate Rhythm: regular rhythm GI Inspection: Yes normal to inspection Neuro General: No confusion Cranial nerves: Yes Normal hearing present Extrem General: Yes normal to inspection and No edema Assessment and Plan Assessment & Plan (1) Preop exam for internal medicine: Code(s): Z01.818 - Encounter for other preprocedural examination Plan: Patient is low risk for any cardiac complication. No further workup needed at this time and may proceed with the contemplated procedure. (2) Cataract: Comment: L eey 11/2023 R eye 05/2024 Code(s): H26.9 - Unspecified cataract (3) Hypothyroid: Comment: Iodine ablation January 2011 Code(s): E03.9 - Hypothyroidism, unspecified Qualifiers: Hypothyroidism type: acquired Qualified Code(s): E03.9 - Hypothyroidism, unspecified Plan: Continue with thyroid medication (4) Hypercholesterolemia: Code(s): E78.00 - Pure hypercholesterolemia, unspecified Plan: Avoid fried foods, chicken skin, eggs, butter margarine, pastries and meat. Be it pork or beef they have a lot of cholesterol on rosuvastatin 5 mg once a day LDL goal of less than 130 and triglyceride of less than 150. (5) GERD (gastroesophageal reflux disease): Comment: Adamant about no ppi Reinforced risks he undertakes Reviewed with him previous EGD report-from 30/07 erosive esophagitis Code(s): K21.9 - Gastro-esophageal reflux disease without esophagitis Qualifiers: Esophagitis presence: without esophagitis Qualified Code(s): K21.9 - Gastro-esophageal reflux disease without esophagitis Plan: Avoid the foods that causes that usually spicy foods, tomato products, juices, coffee, soda and foods that your sensitive to. After eating do not lie down, allow 3-4 hours before in lie down. And keep the head of bed above 30 degrees to avoid the acid from going up. (6) Left flank pain: Code(s): R10.9 - Unspecified abdominal pain Orders: Orders Complete Blood Count Auto Diff Today E78.00 - Pure hypercholesterolemia, unspecified Comprehensive Met. Panel Today E78.00 - Pure hypercholesterolemia, unspecified Lipid Panel Today E78.00 - Pure hypercholesterolemia, unspecified Hemoglobin A1c Today R73.02 - Impaired glucose tolerance (oral) Free T4 (Free Thyroxine) Today E78.00 - Pure hypercholesterolemia, unspecified Prostate Specific Antigen Scr Today E78.00 - Pure hypercholesterolemia, unspecified Thyroid Stimulating Hormone Today E78.00 - Pure hypercholesterolemia, unspecified Vitamin B12 and Folate Today E78.00 - Pure hypercholesterolemia, unspecified US bladder Today R10.9 - Unspecified abdominal pain US renal BI Today R10.9 - Unspecified abdominal pain Coding Level of Care Code Est Pt Level 4 (02189) Diagnoses Preop exam for internal medicine Z01.818 Cataract H26.9 Acquired hypothyroidism E03.9 Hypothyroidism type: acquired Hypercholesterolemia E78.00 Gastroesophageal reflux disease without esophagitis K21.9 Esophagitis presence: without esophagitis Left flank pain R10.9
== END 2024-04-14 14:33 | disposition home or self-care (01) ==
PROVIDERS: PCP Internal Medicine; Visit Provider Internal Medicine
DX: Z01.818 Encounter for other preprocedural examination (principal); H26.9 Unspecified cataract; E03.9 Hypothyroidism, unspecified; E78.00 Pure hypercholesterolemia, unspecified; K21.9 Gastro-esophageal reflux disease without esophagitis; R10.9 Unspecified abdominal pain
CPT/HCPCS: 99214

== ENCOUNTER 2024-04-20 06:02 | Outpatient (REF) | payer OTHER, SELFPAY ==
[2024-04-20 06:13] LABS: MANUAL DIFF FLAG NO
[2024-04-20 07:32] LABS: Basophils Absolute Auto 0.1 X10*3/uL (0.0-0.2); Basophils Percent Auto 0.9 % (0-2); Eosinophils Absolute Auto 0.3 X10*3/uL (0.0-0.4); Eosinophils Percent Auto 4.6 % (0-4); Hematocrit 43.9 % (42.0-52.0); Hemoglobin 14.5 g/dl (14.0-18.0); Imm Gran Abs Auto 0.02 X10*3/uL (0.00-0.03); Imm Gran Pct Auto 0.3 % (0.0-0.4); Lymphocytes Absolute Auto 2.3 X10*3/uL (1.2-4.9); Lymphocytes Percent Auto 35.9 % (20-40); Mean Corpuscular Hemoglobin 30.5 pg (27.0-33.0); Mean Corpuscular Volume 92.2 fL (80.0-98.0); Mean Platelet Volume 9.2 fL (9.4-12.4); Monocytes Absolute Auto 0.5 X10*3/uL (0.1-1.2); Neutrophils Absolute Auto 3.2 x10*3/uL (2.0-8.3); Neutrophils Percent Auto 50.3 % (45-73); Platelet Count 237 X10*3/uL (160-400); Red Blood Count 4.76 X10*6/uL (4.60-5.80); Red Cell Distribution Width 13.2 % (11.0-16.0); White Blood Count 6.4 X10*3/uL (4.8-10.8)
[2024-04-20 07:51] LABS: Estimated Average Glucose 114 mg/dL; Hemoglobin A1C 136.4022 umol/L; Hemoglobin A1c % 5.6 % (<6.0)
[2024-04-20 08:09] LABS: Alanine Aminotransferase 23 U/L (0-40); Albumin Level 4.2 g/dL (3.5-5.0); Alkaline Phosphatase 83 U/L (39-117); Anion Gap 12 (12-20); Aspartate Amino Transferase 23 U/L (5-37); Bilirubin Total 0.7 mg/dL (0.0-1.0); Blood Urea Nitrogen 20 mg/dL (9-16); Calcium 9.4 mg/dL (8.4-10.2); Carbon Dioxide 26 mmol/L (22-29); Chloride 110 mmol/L (96-108); Cholesterol 150 mg/dL (<200); Estimated Glomerular Filt Rate > 60; Glucose Random 100 mg/dL (60-115); HDL Cholesterol 43 mg/dL (>40); LDL Cholesterol Calculated 90 mg/dL (<100); Potassium 4.6 mmol/L (3.3-5.1); Sodium 143 mmol/L (135-145); Triglycerides 88 mg/dL (<150)
[2024-04-20 08:25] LABS: Free T4 (Free Thyroxine) 1.18 ng/dL (0.71-1.85); Thyroid Stimulating Hormone 1.64 uIU/mL (0.32-4.0)
[2024-04-20 08:37] LABS: Folate 9.8 ng/mL (> or = 4.0); Prostate Specific Antigen Scr 2.31 ng/mL (<0.05-4.0); Vitamin B12 375 pg/mL (200-900)
== END 2024-04-20 06:03 | disposition home or self-care (01) ==
LOC: HO.LAB 06:02
PROVIDERS: PCP Internal Medicine; Visit Provider Internal Medicine
DX: E78.00 Pure hypercholesterolemia, unspecified (principal); R73.02 Impaired glucose tolerance (oral)
CPT/HCPCS: 36415; 80053; 80061; 82607; 82746; 83036; 84153; 84439; 84443; 85025

== ENCOUNTER 2024-04-21 12:28 | Outpatient (REF) | payer OTHER, SELFPAY ==
--- NOTE | ~2024-04-21 | US_ITS ---
EXAMINATION: US RETROPERITONEAL COMPLETE (RENAL) CLINICAL INFORMATION: Unspecified abdominal pain. COMPARISON: X-ray abdomen KUB 02/12/2022. Ultrasound abdomen 07/27/2012. TECHNIQUE: Real-time imaging of the kidneys and bladder. FINDINGS: RIGHT KIDNEY: 10.9 x 5.9 x 5.8 cm (SAG x AP x TRV). The kidney is normal in size, contour, and echogenicity. Renal cortical thickness is normal. No calculi or focal parenchymal lesions. Linear echogenic focus near the lateral kidney is of questionable significance. No hydronephrosis. LEFT KIDNEY: 12.3 x 6.5 x 5.4 cm (SAG x AP x TRV). The kidney is normal in size, contour, and echogenicity. Renal cortical thickness is normal. No calculi or focal parenchymal lesions. No hydronephrosis. BLADDER: Well distended with a symmetrically thickened mildly trabeculated wall. Bilateral ureteral jets are demonstrated. Prevoid bladder volume is 284.4 mL. Postvoid bladder volume is 66.0 mL. Enlarged prostate, volume 61.7 mL. US/US retroperitoneal comp IMPRESSION: Enlarged 61.7 mL prostate with trabeculated bladder wall and 66 mL postvoid residual. A cause for the patient's left-sided abdominal pain has not been found. Electronically signed by: Patrick Navarro MD 04/28/2024 02:10 PM EDT
== END 2024-04-21 12:29 | disposition home or self-care (01) ==
LOC: HO.US 12:28
PROVIDERS: PCP Internal Medicine; Visit Provider Internal Medicine
DX: R10.9 Unspecified abdominal pain (principal)
CPT/HCPCS: 76770

== ENCOUNTER 2024-06-01 05:59 | Outpatient (REF) | payer OTHER, SELFPAY ==
[2024-06-01 06:12] LABS: MANUAL DIFF FLAG NO
[2024-06-01 07:11] LABS: Basophils Absolute Auto 0.1 X10*3/uL (0.0-0.2); Basophils Percent Auto 0.8 % (0-2); Eosinophils Absolute Auto 0.3 X10*3/uL (0.0-0.4); Eosinophils Percent Auto 3.9 % (0-4); Hematocrit 43.5 % (42.0-52.0); Hemoglobin 14.7 g/dl (14.0-18.0); Imm Gran Abs Auto 0.03 X10*3/uL (0.00-0.03); Imm Gran Pct Auto 0.5 % (0.0-0.4); Lymphocytes Absolute Auto 2.2 X10*3/uL (1.2-4.9); Lymphocytes Percent Auto 34.1 % (20-40); Mean Corpuscular HGB Conc 33.8 g/dl (31.0-36.0); Mean Corpuscular Hemoglobin 31.1 pg (27.0-33.0); Mean Platelet Volume 9.2 fL (9.4-12.4); Monocytes Absolute Auto 0.5 X10*3/uL (0.1-1.2); Monocytes Percent Auto 8.1 % (2-11); Neutrophils Absolute Auto 3.4 x10*3/uL (2.0-8.3); Neutrophils Percent Auto 52.6 % (45-73); Platelet Count 216 X10*3/uL (160-400); Red Blood Count 4.73 X10*6/uL (4.60-5.80); Red Cell Distribution Width 13.1 % (11.0-16.0); White Blood Count 6.4 X10*3/uL (4.8-10.8)
[2024-06-01 07:50] LABS: Alanine Aminotransferase 27 U/L (0-40); Albumin Level 4.3 g/dL (3.5-5.0); Alkaline Phosphatase 79 U/L (39-117); Anion Gap 12 (12-20); Aspartate Amino Transferase 31 U/L (5-37); Bilirubin Total 0.8 mg/dL (0.0-1.0); Blood Urea Nitrogen 19 mg/dL (9-16); C Reactive Protein 0.33 mg/dL (< or = 0.50); Calcium 9.4 mg/dL (8.4-10.2); Carbon Dioxide 26 mmol/L (22-29); Chloride 107 mmol/L (96-108); Estimated Glomerular Filt Rate > 60; Glucose Random 101 mg/dL (60-115); Potassium 4.1 mmol/L (3.3-5.1); Sodium 141 mmol/L (135-145)
[2024-06-01 08:07] LABS: Free T4 (Free Thyroxine) 1.33 ng/dL (0.71-1.85); Thyroid Stimulating Hormone 2.18 uIU/mL (0.32-4.0)
[2024-06-01 08:13] LABS: Erythrocyte Sedimentation Rate 3 MM/HR (0-15)
== END 2024-06-01 06:00 | disposition home or self-care (01) ==
LOC: HO.LAB 05:59
PROVIDERS: PCP Internal Medicine; Visit Provider Internal Medicine
DX: R51.9 Headache, unspecified (principal)
CPT/HCPCS: 36415; 80053; 84439; 84443; 85025; 85652; 86140

== ENCOUNTER 2025-04-26 08:35 | Outpatient (AMB) | payer OTHER, SELFPAY ==
[2025-04-26 08:59] VITALS: BP 112/72; PULSE 84; TEMP 36.3; O2SAT 96; BMI 26.9
--- NOTE | 2025-04-26 08:59 | MHC.PC.OV ---
Vital Signs 04/26/25 08:59 Height 5 ft 9 in Weight 182 lb 8 oz BMI 26.9 BP 112/72 Blood Pressure Location Lt brachial Position Sitting Pulse 84 Pulse Source Pulse Oximeter Temp 97.3 F Temp Source Temporal Artery Scan Pulse Oximetry (%) 96 Oxygen Delivery Method Room Air Intake Visit Reasons: Annual Exam Allergies simvastatin Allergy (Intermediate, Verified 04/26/25 09:02) Drowsy atorvastatin calcium Allergy (Intermediate, Uncoded 04/26/25 09:02) Drowsy pravastatin sodium Allergy (Intermediate, Uncoded 04/26/25 09:02) Drowsy Medication List - Last Reconciled 04/26/25 by Charlotte Mayes MD ibuprofen 600 mg PO Q8H PRN levothyroxine (Synthroid) 150 mcg orally take once a day except for friday; 90 days pantoprazole 20 mg PO QAM rosuvastatin 5 mg PO DAILY tamsulosin 0.4 mg PO BEDTIME Tobacco use date assessed: 04/26/25 Dental Screening Dental Screen Date: 04/26/25 Did you have a dental visit in the last 12 months?: Yes Did you have a dental problem in the last 6 months where you did not have access to dental care?: No Was dental information given to patient?: Patient has dentist PENDING SALE TO [facility] Medical History Left flank discomfort Colon cancer screening Anemia Finger fracture, right Polymyalgia rheumatica Bilateral hand pain Knee effusion, right Shoulder pain, bilateral Knee pain, bilateral Azygos lobe of lung Degenerative disc disease, cervical Carpal tunnel syndrome, right Hypercholesterolemia Vitamin D deficiency GERD (gastroesophageal reflux disease) Surgical History History of esophagogastroduodenoscopy (EGD) H/O endoscopy H/O colonoscopy History of vasectomy Family History Father Alcohol abuse Myocardial infarct Brother Alcohol abuse Sister Thyroid cancer History of Avila's esophagus Social History Housing: House Alcohol intake: former Patient Tobacco Use Status: Former Tobacco user Tobacco use type: Cigarette Cigarette Packs Per Day: 1.5 Cigarettes Per Day: 30.0 Years Smoked: 15 QUIT 1996 e-Cigarette/Vaping Use: Never Used service: No Current occupational status: employed Cognitive needs: No Hearing needs: No Vision needs: Yes Questionnaire PHQ-9 Over the last 2 weeks, how often have you been bothered by any of the following problems? 1. Little interest or pleasure in doing things: not at all 2. Feeling down, depressed, or hopeless: not at all 3. Trouble falling or staying asleep, or sleeping too much: not at all 4. Feeling tired or having little energy: not at all 5. Poor appetite or overeating: not at all 6. Feeling bad about yourself - or that you are a failure or have let yourself or your family down: not at all 7. Trouble concentrating on things, such as reading the newspaper or watching television: not at all 8. Moving or speaking so slowly that other people could have noticed. Or the opposite - being so fidgety or restless that you have been moving around a lot more than usual: not at all 9. Thoughts that you would be better off or of hurting yourself in some way: not at all Total score: 0 Depression Screening Interpretation: Negative Depression Screening Done: Yes 50485 - PHQ-9 Billing: Yes Source: Developed by Drs. Steev Webber, Zoe Russ, Bijan Mejia and colleagues, with an educational rodolfo from [employer]. Thrive Questionnaire Date Thrive assessed: 04/26/25 I am a: Patient What is your living situation today?: I have a steady place to live Within the past 12 months, did the food you bought not last and you didn't have the money to get more?: Never true Within the past 12 months, did you worry whether your food would run out before you got money to buy more?: Never true Do you have trouble paying for medicines?: No Do you have trouble getting transportation to medical appointments?: No Do you have trouble paying your heating and electricity bill?: No Do you have trouble taking care of your child, family member or friend?: No Do you have trouble with day-to-day activities such as bathing, preparing meals, shopping, managing finances, etc.?: No Are you currently unemployed and looking for a job?: No Are you interested in more education?: No Please select the resources that you would like help with: None Currently or been in a relationship where the following occur: No concerns reported THRIVE Score: 0 AUDIT C Alcohol Use Questionnaire (AUDIT-C) 1. How often do you have a drink containing alcohol?: Never 3. How often do you have six or more drinks on one occasion?: Never Total Score: 0 MAGUI-7 AMB Questionnaire MAGUI-7 Date MAGUI - 7 assessed: 04/26/25 Feeling nervous, anxious, or on edge: 0 = Not at all Not being able to stop or control worryin = Not at all Worrying too much about different things: 0 = Not at all Trouble relaxin = Not at all Being so restless that it is hard to sit still: 0 = Not at all Becoming easily annoyed or irritable: 0 = Not at all Feeling afraid as if something awful might happen: 0 = Not at all Total MAGUI-7 score (0-4 normal; 5-9 mild; 10-14 moderate; 15-21 severe): 0 Source: Developed by Drs. Steve Webber, Zoe Russ, Bijan Mejia and colleagues, with an educational rodolfo from [employer]. MAGUI-7 Assessment Billing MAGUI-7 Assessment Tool: MAGUI-7 Assessment 80610 Review of Systems Const Denies poor appetite and Denies weakness Eyes Denies no additional complaints ENT Reports Normal hearing present, Denies dizziness, Denies nasal congestion, Denies tinnitus and Denies sore throat Card Denies chest pain, Denies syncope, Denies rapid heart rate and Denies dyspnea Resp Denies cough and Denies dyspnea GI Denies change in stool character, Reports constipation, Denies diarrhea, Denies nausea and Denies vomiting Denies dysuria and Denies urinary frequency Neuro Reports Normal hearing present, Denies confusion, Denies dizziness, Denies syncope and Denies weakness Psych Denies confusion Physical exam (Primary Care) Vital Signs: Last Vital Signs Temp 97.3 F 04/26/25 08:59 Pulse 84 04/26/25 08:59 BP 112/72 04/26/25 08:59 Pulse Ox 96 04/26/25 08:59 Oxygen Delivery Method Room Air 04/26/25 08:59 BMI result Body Mass Index 26.9 Tobacco/Smoking Status: Tobacco use Status Tobacco use date assessed 04/26/25 04/26/25 09:03 Patient Tobacco Use Status Former Tobacco user 04/26/25 09:03 Tobacco use type Cigarette 04/26/25 09:03 e-Cigarette/Vaping Use Never Used 04/26/25 09:03 PHQ-9: PHQ-9 Score PHQ-9: Total score 0 04/26/25 09:24 Depression Screening Interpretation: Negative Thrive Assessment: Date of Thrive Assessment Date Thrive assessed 04/26/25 04/26/25 09:03 Currently or been in a relationship where the following occur: No concerns reported Const General: alert and awake; No confusion Orientation/consciousness: No confusion HENMT Head: Yes normocephalic Ears: external ears normal and TM's normal bilaterally Face and sinus: Yes normal facial exam Mouth: moist mucous membranes Throat: Yes tonsils normal Eyes Conjunctivae: conjunctivae normal Pupils: Equal, round and reactive pupils present and Pupil accommodation reflex normal Direct Ophthalmoscopy: normal light reflex Neck Neck: No lymphadenopathy Thyroid: Thyroid normal Chest Chest palpation & inspection: normal inspection of the chest Resp Effort & Inspection: normal respiratory effort and no audible wheezes Auscultation: clear to auscultation bilaterally, no crackles, no wheezes and lung sounds not diminished Cardio Rate: regular rate Rhythm: regular rhythm Peripheral pulses: radial pulses present and dorsalis pedis present GI Other: guaiac negative prostate enlarged Palpation (GI): no masses Auscultation: normal bowel sounds and normoactive bowel sounds Male General Exam: Yes normal external exam Skin General skin exam: no rashes or lesions noted Rashes: no rashes Neuro General: deep tendon reflexes 2+ bilaterally and No confusion Cranial nerves: Yes Equal, round and reactive pupils present, Yes Midline tongue present, Yes Normal hearing present and Yes Ability to bilaterally elevate shoulders present Cognition (Neuro): normal cognition Gait exam (Neuro): Normal gait present Motor exam (neuro): 5/5 motor strength present throughout Deep tendon reflexes (DTR's): Right brachioradialis reflex intensity grade: 2+, Left brachioradialis reflex intensity grade: 2+, Right patellar reflex intensity grade: 2+ and Left patellar reflex intensity grade: 2+ Extrem General: No edema Coding Level of Care Code Est Pt Prev Care 40-64y(03227) Diagnoses Annual physical exam Z00.00 BPH (benign prostatic hyperplasia) N40.0 Gastroesophageal reflux disease without esophagitis K21.9 Esophagitis presence: without esophagitis Acquired hypothyroidism E03.9 Hypothyroidism type: acquired Impaired glucose tolerance R73.02 Hypercholesterolemia E78.00 Additional Codes MAGUI-7 Assessment Billing - MAGUI-7 Assessment Tool: MAGUI-7 Assessment 58825 ([id number]) PHQ-9 - 90083 - PHQ-9 Billing: Yes ([id number]) Assessment & Plan Assessment & Plan (1) Annual physical exam: Code(s): Z00.00 - Encounter for general adult medical examination without abnormal findings Category: Medical Plan: Patient is advised to eat healthy, keep well hydrated, keep active and have adequate sleep. (2) BPH (benign prostatic hyperplasia): Comment: 04/2024 61.7 cc Code(s): N40.0 - Benign prostatic hyperplasia without lower urinary tract symptoms Category: Medical Plan: Discussed with the patient regarding the ultrasound results. (3) GERD (gastroesophageal reflux disease): Comment: Adamant about no ppi Reinforced risks he undertakes Reviewed with him previous EGD report-from 30/07 erosive esophagitis Code(s): K21.9 - Gastro-esophageal reflux disease without esophagitis Category: Medical Qualifiers: Esophagitis presence: without esophagitis Qualified Code(s): K21.9 - Gastro-esophageal reflux disease without esophagitis Plan: Avoid the foods that causes that usually spicy foods, tomato products, juices, coffee, soda and foods that your sensitive to. After eating do not lie down, allow 3-4 hours before in lie down. And keep the head of bed above 30 degrees to avoid the acid from going up. (4) Hypothyroid: Comment: Iodine ablation January 2011 Code(s): E03.9 - Hypothyroidism, unspecified Category: Medical Qualifiers: Hypothyroidism type: acquired Qualified Code(s): E03.9 - Hypothyroidism, unspecified Plan: Continue with thyroid medication blood work requested (5) Impaired glucose tolerance: Code(s): R73.02 - Impaired glucose tolerance (oral) Category: Medical Plan: Decrease the amount of carbohydrate intake, pasta, bread, rice and potatoes are all sugar and that is aside from all the sweet stuff, remember that fruits are good but they are Sweet also. (6) Hypercholesterolemia: Code(s): E78.00 - Pure hypercholesterolemia, unspecified Category: Medical Plan: Avoid fried foods, chicken skin, eggs, butter margarine, pastries and meat. Be it pork or beef they have a lot of cholesterol on rosuvastatin 5 mg once a day Plan History of Present Illness The patient is a 64-year-old male presenting for a physical examination and follow-up on chronic conditions. He has a history of gastroesophageal reflux disease (GERD) and hypercholesterolemia, which have been managed with lifestyle modifications and medication. His last cholesterol test in April showed an LDL of 90 mg/dL. The patient also has polymyalgia rheumatica and impaired glucose tolerance, which are being monitored regularly. His blood sugar was noted to be elevated at 101 mg/dL during the last blood work in May. He has hypothyroidism, for which he is on thyroid medication, and benign prostatic hyperplasia (BPH), with an ultrasound in April showing an enlarged prostate. The ultrasound also revealed a trabeculated bladder wall and a post-void residual of 66 cc. Preventative care measures include a colon cancer screening completed in August 2022. Health Maintenance - Colon cancer screening completed in August 2022 Social History Review of Systems Physical Exam General: Cooperative, healthy appearing, comfortable, no acute distress and well developed Orientation: Patient oriented x3 Limitations: No limitations Head: Normal to inspection Ears: Hearing grossly normal bilaterally Nose: Normal external nose present Face and sinus: Normal facial exam Eyes: Appearance normal, both eyes and all related structures Neck: Normal visual inspection and Yes full ROM Respiratory: Normal respiratory effort and able to speak in complete sentences. Clear to auscultation bilaterally Cardiovascular: Regular rate and rhythm. Normal S1 and S2 GI: Normal to inspection. Soft to palpation and nontender Skin: No rashes or lesions noted Neuro: Patient oriented x3 Extremities: Normal to inspection Results - Ultrasound of the abdomen in April showed an enlarged prostate and trabeculated bladder wall with a post-void residual of 66 cc - Blood work in May showed normal blood count, normal electrolytes, creatinine 1.13 mg/dL, elevated blood sugar at 101 mg/dL, normal liver function tests, LDL cholesterol at 90 mg/dL, PSA at 2.31 ng/mL, normal thyroid function, and normal B12 levels Plan Patient was informed and verbally consented to the use of an ambient scribe for clinic note documentation during this visit. 1. Gastroesophageal Reflux Disease (Gerd) The patient will continue with current management strategies for GERD, including lifestyle modifications and medication adherence. 2. Hypercholesterolemia The patient is on rosuvastatin 5 mg once daily to manage hypercholesterolemia. 3. Polymyalgia Rheumatica Polymyalgia rheumatica is being monitored regularly, with no changes in management discussed. 4. Impaired Glucose Tolerance The patient is advised to monitor blood glucose levels and maintain dietary modifications to manage impaired glucose tolerance. 5. Hypothyroidism The patient will continue with thyroid medication as prescribed. 6. Benign Prostatic Hyperplasia (Bph) The patient is advised to follow up on BPH management, considering the ultrasound findings of an enlarged prostate and trabeculated bladder wall. Discussion Notes I discussed the ultrasound results with the patient, highlighting the enlarged prostate and trabeculated bladder wall. We reviewed the management plans for GERD, hypercholesterolemia, and hypothyroidism, ensuring the patient understands the importance of medication adherence and lifestyle modifications. Patient Instructions - Continue current GERD management with lifestyle changes and medications. - Take rosuvastatin 5 mg once daily for cholesterol management. - Monitor blood glucose levels and adhere to dietary recommendations. - Continue thyroid medication as prescribed. - Follow up on BPH management as discussed. Orders: Orders Prostate Specific Antigen Scr Today N40.0 - Benign prostatic hyperplasia without lower urinary tract symptoms Complete Blood Count Auto Diff Today E03.9 - Hypothyroidism, unspecified Hemoglobin A1c Today E03.9 - Hypothyroidism, unspecified Erythrocyte Sedimentation Rate Today E03.9 - Hypothyroidism, unspecified Thyroid Stimulating Hormone Today E03.9 - Hypothyroidism, unspecified Free T4 (Free Thyroxine) Today E03.9 - Hypothyroidism, unspecified Comprehensive Met. Panel Today E03.9 - Hypothyroidism, unspecified Vitamin B12 and Folate Today E03.9 - Hypothyroidism, unspecified Lipid Panel Today E03.9 - Hypothyroidism, unspecified, E78.00 - Pure hypercholesterolemia, unspecified Medications: New tamsulosin 0.4 mg PO BEDTIME 30 caps 1RF N40.0 - Benign prostatic hyperplasia without lower urinary tract symptoms
--- OUTSIDE RECORDS SUMMARY | 2025-04-26 10:18 | XMS_ITS | Clinical Summary ---
Author Organization [facility] Address [address] [place] [address] Care Team Providers Care Biomass Technician Name Role Phone Unavailable Primary Care Provider Unavailabl e Social History Tobacco Use Types Packs/Day Years Used Date Smoking Tobacco: Never Assessed Sex and Gender Information Value Date Recorded Sex Assigned at Not on file Legal Sex Male 6:30 PM EST Gender Identity Not on file Sexual Orientation Not on file Plan of Treatment Health Maintenance Due Date Last Done Comments Hepatitis C Virus Screening 1961 HIV Screening 1974 DTaP/Tdap/Td Vaccines (1 - Tdap) 1980 Pneumococcal Vaccines 50+ (1 of 1 - PCV) 2011 Zoster (Shingles) Vaccine (1 of 2) 2011 COVID-19 Vaccine (3 - 2024-2 6 season) 2025 11/20/2020, 10/20/2020 RSV Vaccine 60 years and older and Patients (1 - 1-dose 75+ series) 2036 Hepatitis B Vaccines Aged Out No long er eligible based on patient's age to complete this topic
--- OUTSIDE RECORDS SUMMARY | 2025-04-26 10:18 | XMS_ITS | Clinical Summary ---
Author Organization [facility] Address [address] [place] [address] Care Team Providers Care Environmental Emergencies Planner Name Role Phone Unavailable Primary Care Provider Unavailabl e Source Comments Please note that some or all of the patient's information could have additional privacy protections. State laws allow health care providers to render certain types of treatment to minors without parental consent. Please do not assume that this information can be shared solely by obtaining just the consent of the patient's parent/guardian. Please determine if all or part of the patient's care was rendered without parent/guardian involvement. And, if so, obtain the minor's consent prior to disclosure.[facility] Immunizations Immunization Administration Dates Next Due Moderna Sars-cov-2 Vaccination 10/20/2020 Social History Tobacco Use Types Packs/Day Years Used Date Smoking Tobacco: Never Assessed Sex and Gender Information Value Date Recorded Sex Assigned at Not on file Legal Sex Male 12:45 PM EST Gender Identity Not on file Sexual Orientation Not on file Plan of Treatment Health Maintenance Due Date Last Done Comments DTaP/TDAP/TD VACCINES (1 - Tdap) 1968 ADOLESCENT HIV SCREENING 1974 COVID-19 Vaccine (2 - 2024-2 6 season) 2025 10/20/2020 INFLUENZA (#1) 2025 NIRSEVIMAB VACCINES UNDER 8 MONTHS Aged Out No longer eligible b ased on patient's age to complete [place] [id number] [place]
--- OUTSIDE RECORDS SUMMARY | 2025-04-26 10:18 | XMS_ITS | Patient Health Record ---
Author Organization [facility] Address [address] [place] [address] Care Team Providers Care Food Services Manager Name Role Phone Charlotte Mayes MD Primary Care Provider Pancho Marcial Jr Unavailable [phone] Reason For Referral No Information Medications Medication SIG (Take, Route, Fr equency, Duration) Notes Start Date End Date Status MoviPrep 100 GM as directed before c olonoscopy Orally for 1 dose 09/06/2011 08/11/2024 Active Synthroid Active Lipitor 10mg Active Problems Problem Type SNOMED Code ICD Code Onset Dates Problem Status W/U Status Risk Notes Problem Dysphagia (48083681) Dysphagia, unspecified (787.20) Active confirmed Problem Screening for malignant neoplasm of colon (423798523) Special screening for malignant neoplasms, colon (V76.51) Active confirmed Plan Of Treatment Future Test Test Name Order Date UPPER GI ENDOSCOPY 09/06/2011 COLONOSCOPY 09/06/2011 Insurance Providers Payer Name Payer Address Payer Phone Subscriber Number Group Number Insured Name Patient Relationship to Insured Coverage Start Date Coverage End Date TIFFANIE ANDERSON/BS OF [place] [address] [place] [phone] [id number] Mitchell Rivera Self - patient is the insured Medical (General) History Medical History History ICD Code elevated cholesterol hypothyroid
--- OUTSIDE RECORDS SUMMARY | 2025-04-26 10:18 | XMS_ITS | Clinical Summary ---
Author Organization [employer] Address [address] [facility] [place] [address] Care Team Providers Care Pasting Machine Offbearer Name Role Phone Unavailable Primary Care Provider Unavailabl e Social History Tobacco Use Types Packs/Day Years Used Date Smoking Tobacco: Never Assessed Sex and Gender Information Value Date Recorded Sex Assigned at Male 12/25/2023 9:27 AM EDT Legal Sex Male 9:26 AM EDT Gender Identity Male 12/25/2023 9:27 AM EDT Sexual Orientation Straight 12/25/2023 9: 28 AM EDT Plan of Treatment Health Maintenance Due Date Last Done Comments CT Colonography 1961 Colonoscopy 1961 Colorectal Cancer Screening 1961 Depression Screening 1961 FIT DNA/Cologuard 1961 FIT 1961 FOBT 1961 HIV Screening 1961 Lipid Panel 1961 SDOH Screening 1961 Sigmoidoscopy 1961 Disability Screening 1961 Alcohol/Substance Use Screening 1973 Tobacco Screening 1973 Hepatitis C Screening 1979 DTaP/Tdap/Td Vaccines (1 - Tdap) 1980 Pneumococcal Vaccine: 50+ Years (1 of 1 - PCV) 2011 COVID-19 Vaccine (3 - 2024-2 6 season) 2025 08/28/2021, 10/20/2020 Influenza Vaccine (#1) 2025 07/01/2023 RSV Patients and Patients Aged 60 years or older (1 - 1-dose 75+ series) 2036 Zoster Vaccines Completed 07/01/2023, 03/27/2023 HIB Vaccines Aged Out No longer eligi ble based on patient's age to complete this topic HPV Vaccines Aged Out No longer eligi ble based on patient's age to complete this topic Hepatitis A Vaccines Aged Out No long er eligible based on patient's age to complete this topic Hepatitis B Vaccines Aged Out No long er eligible based on patient's age to complete this topic IPV Vaccines Aged Out No longer eligi ble based on patient's age to complete this topic Meningococcal B Vaccine Aged Out No l onger eligible based on patient's age to complete this topic Meningococcal Vaccine Aged Out No nelson diaz eligible based on patient's age to complete this topic RSV under 20 months Aged Out No longe r eligible based on patient's age to complete this topic Rotavirus Vaccines Aged Out No longer eligible based on patient's age to complete this topic Insurance [facility] (O)
== END 2025-04-26 09:51 | disposition home or self-care (01) ==
LOC: HO.HMCH 08:36
PROVIDERS: PCP Internal Medicine; Visit Provider Internal Medicine
DX: Z00.00 Encounter for general adult medical examination without abnormal findings (principal); N40.0 Benign prostatic hyperplasia without lower urinary tract symptoms; K21.9 Gastro-esophageal reflux disease without esophagitis; E03.9 Hypothyroidism, unspecified; R73.02 Impaired glucose tolerance (oral); E78.00 Pure hypercholesterolemia, unspecified

== ENCOUNTER → 2025-04-26 08:35 | Outpatient (BNVA) | payer OTHER, SELFPAY | PROVIDERS: PCP Internal Medicine; Visit Provider Internal Medicine | DX: Z00.00 Encounter for general adult medical examination without abnormal findings (principal); N40.0 Benign prostatic hyperplasia without lower urinary tract symptoms; K21.9 Gastro-esophageal reflux disease without esophagitis; E03.9 Hypothyroidism, unspecified; R73.02 Impaired glucose tolerance (oral); E78.00 Pure hypercholesterolemia, unspecified; M35.3 Polymyalgia rheumatica; Z79.899 Other long term (current) drug therapy | CPT/HCPCS: 96127; 99396 ==

== ENCOUNTER 2025-07-01 06:02 | Outpatient (REF) | payer OTHER, SELFPAY ==
--- OUTSIDE RECORDS SUMMARY | 2025-07-01 06:03 | XMS_ITS | Patient Health Record ---
Author Organization [facility] Address [address] [place] [address] Care Team Providers Care Squilgeer Name Role Phone Charlotte Mayes MD Primary Care Provider Pancho Marcial Jr Unavailable [phone] Reason For Referral No Information Medications Medication SIG (Take, Route, Frequency, Duration) Notes Start Date End Date Status MoviPrep 100 GM Solution Reconstituted as directed before colonoscopy Orally; Duration: 1 dose 09/06/2011 Active Synthroid Active Lipitor 10mg Active Problems Problem Type SNOMED Code ICD Code Onset Dates Problem Status W/U Status Risk Notes Problem Dysphagia (77476075) Dysphagia, unspecified (787.20) Active confirmed Problem Screening for malignant neoplasm of colon (103629484) Special screening for malignant neoplasms, colon (V76.51) Active confirmed Plan Of Treatment Future Test Test Name Order Date UPPER GI ENDOSCOPY 09/06/2011 COLONOSCOPY 09/06/2011 Insurance Providers Payer Name Payer Address Payer Phone Subscriber Number Group Number Insured Name Patient Relationship to Insured Coverage Start Date Coverage End Date TIFFANIE ANDERSON/BS OF [place] [address] [place] [phone] [id number] Mitchell Rivera Self - patient is the insured Medical (General) History Medical History History ICD Code elevated cholesterol hypothyroid
--- OUTSIDE RECORDS SUMMARY | 2025-07-01 06:03 | XMS_ITS | Clinical Summary ---
Author Organization [facility] Address [address] [place] [address] Care Team Providers Care Hardness Tester Name Role Phone Unavailable Primary Care Provider [...] so, obtain the minor's consent prior to disclosure.[facility] Immunizations Immunization Administration Dates Next Due [...] complete [place] [id number] [place]
--- OUTSIDE RECORDS SUMMARY | 2025-07-01 06:03 | XMS_ITS | Clinical Summary ---
Author Organization [facility] Address [address] [place] [address] Care Team Providers Care Service Sprinkler Helper Name Role Phone Unavailable Primary Care Provider [...] 6 season) 2025 11/20/2020, 10/20/2020 RSV Vaccine 50 years and older and Patients (1 - 1-dose 75+ series) 2036 Hepatitis B Vaccines Aged Out No long er eligible based on patient's age to complete this topic
--- OUTSIDE RECORDS SUMMARY | 2025-07-01 06:03 | XMS_ITS | Clinical Summary ---
Author Organization [employer] Address [address] [place] [address] Care Team Providers Care Chief Technologist Name Role Phone Unavailable Primary Care Provider [...] patient's age to complete this topic Insurance [facility] ST[facility] (O)
--- OUTSIDE RECORDS SUMMARY | 2025-07-01 06:03 | XMS_ITS ---
Author Name [facility] Organization Unknown Encounters Encounter Type Encounter Reason Primary Diagnosis Location Date Ambulatory [facility] 01/16/2023 Care Team Organization Name Specialty Phone Email Start Date End Da te [facility] 01/17/2023 [facility] 01/16/2023 01/16/2023
[2025-07-01 06:17] LABS: MANUAL DIFF FLAG NO
[2025-07-01 07:20] LABS: Hematocrit 45.6 % (42.0-52.0); Hemoglobin 15.0 g/dl (14.0-18.0); Imm Gran Abs Auto 0.02 X10*3/uL (0.00-0.03); Imm Gran Pct Auto 0.4 % (0.0-0.4); Lymphocytes Absolute Auto 1.9 X10*3/uL (1.2-4.9); Mean Corpuscular HGB Conc 32.9 g/dl (31.0-36.0); Mean Corpuscular Hemoglobin 30.3 pg (27.0-33.0); Mean Corpuscular Volume 92.1 fL (80.0-98.0); NRBC Abs Auto 0.000 X10*3/uL (0.0-0.012); NRBC Pct Auto 0.0 /100WBC (0.0-0.2); Platelet Count 226 X10*3/uL (160-400); Red Blood Count 4.95 X10*6/uL (4.60-5.80); White Blood Count 5.4 X10*3/uL (4.8-10.8)
[2025-07-01 07:58] LABS: Alanine Aminotransferase 25 U/L (0-40); Albumin Level 4.5 g/dL (3.5-5.0); Alkaline Phosphatase 79 U/L (39-117); Anion Gap 9 (12-20); Aspartate Amino Transferase 25 U/L (5-37); Blood Urea Nitrogen 26 mg/dL (9-16); Calcium 9.4 mg/dL (8.4-10.2); Carbon Dioxide 29 mmol/L (22-29); Chloride 111 mmol/L (96-108); Cholesterol 156 mg/dL (<200); Estimated Glomerular Filt Rate > 60; HDL Cholesterol 49 mg/dL (>40); Potassium 5.0 mmol/L (3.3-5.1); Sodium 144 mmol/L (135-145); Total Protein 7.1 g/dL (6.5-8.0); Triglycerides 70 mg/dL (<150)
[2025-07-01 08:47] LABS: Free T4 (Free Thyroxine) 1.33 ng/dL (0.71-1.85); Thyroid Stimulating Hormone 1.04 uIU/mL (0.32-4.0)
[2025-07-01 08:58] LABS: Folate 9.9 ng/mL (> or = 4.0); Vitamin B12 443 pg/mL (200-900)
== END 2025-07-01 06:03 | disposition home or self-care (01) ==
LOC: HO.LAB 06:02
PROVIDERS: PCP Internal Medicine; Visit Provider Internal Medicine
DX: Z12.5 Encounter for screening for malignant neoplasm of prostate (principal); N40.0 Benign prostatic hyperplasia without lower urinary tract symptoms; E78.00 Pure hypercholesterolemia, unspecified; E03.9 Hypothyroidism, unspecified
CPT/HCPCS: 36415; 80053; 80061; 82607; 82746; 83036; 84153; 84439; 84443; 85025; 85652